=== PATIENT | female | born 1935 | race Caucasian/White ===

== ENCOUNTER → 2016-10-18 | Outpatient (CLI) | payer MEDICARE ==
[2016-10-18 13:53] LABS: APPEARANCE,URINE CLEAR; BILIRUBIN,URINE NEGATIVE (NEGATIVE); GLUCOSE, URINE NEGATIVE (NEGATIVE); KETONES,URINE TRACE mg/dL (NEGATIVE); LEUKOCYTE ESTERASE,URINE NEGATIVE (NEGATIVE); NITRITE,URINE NEGATIVE (NEGATIVE); PROTEIN,URINE 100 mg/dL (NEGATIVE); URINE SPECIFIC GRAVITY 1.018; UROBILINOGEN,URINE NEGATIVE mg/dL (<2.0)
[2016-10-18 14:08] LABS: ANION GAP 11 (5-19); BLOOD UREA NITROGEN 23 mg/dL (7-20); CALCIUM 10.2 mg/dL (8.4-10.2); CARBON DIOXIDE 27 mmol/L (22-30); CHLORIDE 100 mmol/L (98-107); GLUCOSE 117 mg/dL (75-110); POTASSIUM 5.2 mmol/L (3.6-5.0); SODIUM 138.2 mmol/L (137-145)
[2016-10-19 11:38] LABS: CREATININE URINE 122.7 mg/dL (Not Estab.)
== END ==
LOC: OD 12:43
PROVIDERS: ATTEND Internal Medicine Nephrology
DX: I10 Essential (primary) hypertension (principal); R80.9 Proteinuria, unspecified; E87.5 Hyperkalemia
CPT/HCPCS: 36415; 80048; 81001; 82570; 84156

== ENCOUNTER → 2017-04-25 | Outpatient (CLI) | payer MEDICARE ==
[2017-04-25 13:41] LABS: APPEARANCE,URINE CLEAR; BILIRUBIN,URINE NEGATIVE (NEGATIVE); GLUCOSE, URINE NEGATIVE (NEGATIVE); KETONES,URINE NEGATIVE (NEGATIVE); LEUKOCYTE ESTERASE,URINE NEGATIVE (NEGATIVE); NITRITE,URINE NEGATIVE (NEGATIVE); PROTEIN,URINE 30 mg/dL (NEGATIVE); URINE SPECIFIC GRAVITY 1.011; UROBILINOGEN,URINE NEGATIVE mg/dL (<2.0)
[2017-04-25 13:54] LABS: BLOOD UREA NITROGEN 28 mg/dL (7-20); CALCIUM 10.7 mg/dL (8.4-10.2); CREATININE RESULT 0.93 mg/dL (0.52-1.25); GLUCOSE 144 mg/dL (75-110)
[2017-04-25 13:55] LABS: ANION GAP 11 (5-19); CARBON DIOXIDE 29 mmol/L (22-30); CHLORIDE 101 mmol/L (98-107); SODIUM 140.5 mmol/L (137-145)
[2017-04-25 16:00] LABS: URINE CREATININE 47.7 mg/dL (15-278); URINE PROTEIN 49.8 mg/dL (<12)
== END ==
LOC: OD 12:14
PROVIDERS: ATTEND Internal Medicine Nephrology
DX: E87.5 Hyperkalemia (principal); R80.9 Proteinuria, unspecified; I10 Essential (primary) hypertension
CPT/HCPCS: 36415; 80048; 81001; 82570; 84156

== ENCOUNTER → 2017-11-07 | Outpatient (CLI) | payer MEDICARE ==
[2017-11-07 16:24] LABS: HEMATOCRIT 36.1 % (36.0-47.0); HEMOGLOBIN 12.4 g/dL (12.0-15.5); MEAN CORPUSCULAR HEMOGLOBIN 31.2 pg (27.0-33.4); MEAN CORPUSCULAR HGB CONC 34.3 g/dL (32.0-36.0); MEAN CORPUSCULAR VOLUME 91 fl (80-97); PLATELET COUNT 317 10^3/uL (150-450); RED BLOOD COUNT 3.96 10^6/uL (3.72-5.28); RED CELL DISTRIBUTION WIDTH 12.3 % (11.5-14.0); WHITE BLOOD COUNT 8.9 10^3/uL (4.0-10.5)
[2017-11-07 16:26] LABS: APPEARANCE,URINE CLEAR; BILIRUBIN,URINE NEGATIVE (NEGATIVE); COLOR,URINE YELLOW; GLUCOSE, URINE NEGATIVE (NEGATIVE); KETONES,URINE NEGATIVE (NEGATIVE); LEUKOCYTE ESTERASE,URINE NEGATIVE (NEGATIVE); NITRITE,URINE NEGATIVE (NEGATIVE); PROTEIN,URINE 100 mg/dL (NEGATIVE); URINE SPECIFIC GRAVITY 1.009; UROBILINOGEN,URINE NEGATIVE mg/dL (<2.0)
[2017-11-07 16:47] LABS: UR PRO/CREAT RATIO RESULT 2.5 mg/mg (0.0-0.2); URINE CREATININE 31.9 mg/dL (15-278); URINE PROTEIN 80.1 mg/dL (<12)
[2017-11-07 16:47] LABS: ANION GAP 13 (5-19); BLOOD UREA NITROGEN 26 mg/dL (7-20); CARBON DIOXIDE 26 mmol/L (22-30); CHLORIDE 100 mmol/L (98-107); GLUCOSE 121 mg/dL (75-110); POTASSIUM 4.9 mmol/L (3.6-5.0); SODIUM 138.8 mmol/L (137-145)
== END ==
LOC: OD 15:10
PROVIDERS: ATTEND Physician Assistant Medical
DX: E11.9 Type 2 diabetes mellitus without complications (principal); R80.9 Proteinuria, unspecified; E87.5 Hyperkalemia
CPT/HCPCS: 36415; 80048; 81001; 82570; 84156; 85027

== ENCOUNTER → 2017-12-08 | Outpatient (CLI) | payer MEDICARE ==
--- NOTE | 2017-12-08 10:36 | WOMENS IMAGING REPORT ---
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 LIMITATIONS: None. FINDINGS: LUMBAR SPINE: The bone mineral density (BMD) measured from L1-L4 in the AP projection correlates with a T-score of -0.3, which is normal as defined by the World Health Organization. -0.1% decrease as compared to the previous study HIP: The bone mineral density (BMD) measured in the left hip correlates with a T-score of -1.8, which is o steopenia as defined by the World Health Organization. 4.4% increase as compared to the previous rebecca dy IMPRESSION: 1. LUMBAR SPINE: Normal 2. HIP: Osteopenia COMMENT: The World Health Organization defines low BMD as follows: T-score: Normal: Greater than -1.0 Osteopenia: Between -1.0 and -2.5 Osteoporosis: Less than -2.5 without fractures Established osteoporosis: Less than -2.5 with fractures In general, you may wish to consider: Diagnosis Treatment Follow-up DEXA Normal BMD Prevention 2-3 years Osteopenia Prevention/Therapy 1-2 years Osteoporosis Therapy Yearly TECHNICAL DOCUMENTATION: JOB ID: [id number] [employer]- All Rights Reserved Reading location - IP/workstation name: [email or web address]
== END ==
LOC: WI 10:01
PROVIDERS: ATTEND Internal Medicine
DX: M81.0 Age-related osteoporosis without current pathological fracture (principal)
CPT/HCPCS: 77080

== ENCOUNTER 2018-03-03 20:07 | Emergency (ER) | payer MEDICARE ==
--- NOTE | 2018-03-03 20:40 | RADIOLOGY REPORT (SQ) ---
EXAM DESCRIPTION: CHEST SINGLE VIEW COMPLETED DATE/TIME: 03/03/2018 8:28 pm REASON FOR STUDY: abnormal labs COMPARISON: None. EXAM PARAMETERS: NUMBER OF VIEWS: One view. TECHNIQUE: Single frontal radiographic view of the chest acquired. RADIATION DOSE: NA LIMITATIONS: None. FINDINGS: LUNGS AND PLEURA: No opacities, masses or pneumothorax. No pleural effusion. MEDIASTINUM AND HILAR STRUCTURES: No masses. Contour normal. HEART AND VASCULAR STRUCTURES: Heart normal in size. Normal vasculature. BONES: No acute findings. HARDWARE: None in the chest. OTHER: No other significant finding. IMPRESSION: NO ACUTE RADIOGRAPHIC FINDING IN THE CHEST. TECHNICAL DOCUMENTATION: JOB ID: [id number] [employer]- All Rights Reserved Reading location - IP/workstation name: [email or web address]
[2018-03-03 21:10] LABS: ABSOLUTE BASOPHILS # (AUTO) 0.2 10^3/uL (0.0-0.2); ABSOLUTE EOSINOPHILS # (AUTO) 0.9 10^3/uL (0.0-0.6); ABSOLUTE LYMPHOCYTES (AUTO) 3.5 10^3/uL (0.5-4.7); ABSOLUTE MONOCYTES (AUTO) 0.6 10^3/uL (0.1-1.4); ABSOLUTE NEUT (AUTO) 3.6 10^3/uL (1.7-8.2); BASOPHILS % (AUTO) 2.4 % (0-2); EOSINOPHILS % (AUTO) 10.8 % (0-6); LYMPHOCYTES % (AUTO) 39.6 % (13-45); MEAN CORPUSCULAR HEMOGLOBIN 31.4 pg (27.0-33.4); MEAN CORPUSCULAR HGB CONC 34.3 g/dL (32.0-36.0); MEAN CORPUSCULAR VOLUME 92 fl (80-97); MONOCYTES % (AUTO) 6.8 % (3-13); PLATELET COUNT 415 10^3/uL (150-450); RED BLOOD COUNT 4.15 10^6/uL (3.72-5.28); RED CELL DISTRIBUTION WIDTH 12.7 % (11.5-14.0); SEGMENTED NEUTROPHILS % (AUTO) 40.4 % (42-78); TOTAL CELLS COUNTED % (AUTO) 100 %; WHITE BLOOD COUNT 8.8 10^3/uL (4.0-10.5)
[2018-03-03] MEDS ORDERED: NORMAL SALINE 1000 ML 1,000 ML IV ONE (21:17)
[2018-03-03] MEDS ORDERED: HYDRALAZINE HCL INJ/PF 20 MG/1 ML SDV IV ONE (21:17)
[2018-03-03] MEDS ORDERED: SODIUM POLYSTYRENE SULFONATE 15 GM/60 ML PO ONE (21:18)
--- NOTE | 2018-03-03 21:22 | ER Document Report ---
ED General <ISAAC BAKER - Last Filed: 03/03/18 22:54> - General Mode of Arrival: Ambulatory Information source: Patient TRAVEL OUTSIDE OF THE [place] IN LAST 30 DAYS: No <KATHERINE BARTON - Last Filed: 03/04/18 18:29> - General Chief Complaint: Abnormal Lab Results Stated Complaint: ABNORMAL LABS Time Seen by Provider: 03/03/18 21:07 Notes: Patient is an 82 year old female with HTN, glaucoma and renal problems presents to the emergency department complaining of an elevated potassium. Patient states that she is prescribed Kayexalate 1x a week but has forgotten to take her Kayexalate for 3-4 weeks. Patient states that she decided to come to the emergency department due to this. She also mentions walking every day but only walking for a short period of time today due to the heat. Patient denies eating any bananas, oranges or fruit. Patient mentions her blood pressure being elevated whenever she is being seen by a physician. (KATHERINE BARTON) - Related Data Allergies/Adverse Reactions: No Known Allergies Allergy (Unverified 03/03/18 21:54) Past Medical History - General Information source: Patient - Social History Smoking Status: Former Smoker - quit in 1997 Cigarette use (# per day): No Chew tobacco use (# tins/day): No Smoking Education Provided: No Frequency of alcohol use: None Family History: Reviewed & Not Pertinent - Past Medical History Cardiac Medical History: Reports: Hx Hypertension EENT Medical History: Reports: Eyes - Glaucoma <KATHERINE BARTON - Last Filed: 03/04/18 18:29> Review of Systems - Review of Systems Constitutional: See HPI EENT: No symptoms reported Cardiovascular: No symptoms reported Respiratory: No symptoms reported Gastrointestinal: No symptoms reported Genitourinary: No symptoms reported Female Genitourinary: No symptoms reported Musculoskeletal: No symptoms reported Skin: No symptoms reported Hematologic/Lymphatic: No symptoms reported Neurological/Psychological: No symptoms reported -: Yes All other systems reviewed and negative <KATHERINE BARTON - Last Filed: 03/04/18 18:29> Physical Exam - General General appearance: Appears well, Alert In distress: None - HEENT Head: Normocephalic, Atraumatic Eyes: Normal Conjunctiva: Normal Extraocular movements intact: Yes Pupils: PERRL Neck: Normal - Respiratory Respiratory status: No respiratory distress Chest status: Nontender Breath sounds: Normal Chest palpation: Normal - Cardiovascular Rhythm: Regular Heart sounds: Normal auscultation Murmur: No Friction rub: No Gallop: None auscultated - Abdominal Inspection: Normal Distension: No distension Bowel sounds: Normal Tenderness: Nontender Organomegaly: No organomegaly - Back Back: Normal - Extremities General upper extremity: Normal ROM General lower extremity: Normal ROM - Neurological Neuro grossly intact: Yes Cognition: Normal Orientation: AAOx4 Zi Coma Scale Eye Opening: Spontaneous [place] Coma Scale Verbal: Oriented Zi Coma Scale Motor: Obeys Commands Zi Coma Scale Total: 15 Speech: Normal - Psychological Associated symptoms: Normal affect, Normal mood - Skin Skin Temperature: Warm Skin Moisture: Dry Skin Color: Normal <KATHERINE BARTON - Last Filed: 03/04/18 18:29> - Vital signs Vitals: Temp Pulse BP Pulse Ox 97.9 F 112 H 217/86 H 98 03/03/18 20:37 03/03/18 20:37 03/03/18 20:37 03/03/18 20:37 Course - Laboratory Result Diagrams: 03/03/18 20:58 03/03/18 20:58 <ISAAC BAKER - Last Filed: 03/03/18 22:54> - Laboratory Result Diagrams: 03/03/18 20:58 03/03/18 20:58 <KATHERINE BARTON - Last Filed: 03/04/18 18:29> - Re-evaluation Re-evalutation: 03/03/18 21:53 Patient's potassium about 1600 today was 6.3, when blood was drawn at 2100 this evening in the emergency room it is 5.4. It is unclear if she actually took her Kayexalate after she was told of the elevated potassium level. She does admit that she has missed her weekly dose of Kayexalate for 3-4 weeks now. She states she has not missed her blood pressure doses, but her blood pressure goes high when she goes to the doctor. Her systolic pressures running over 200. She was given 10 mg of hydralazine to see where that takes her blood pressure. She was also given a dose of Kayexalate after the blood was drawn, but before the lab was resulted. 03/03/18 22:55 The patient is anxious to go this time. Blood pressure has come down to 154/65. She has an appointment with her application packaging consultant on 03/05/2018. (ISAAC BAKER) - Vital Signs Vital signs: Temp Pulse Resp BP Pulse Ox 97.9 F 112 H 21 H 163/70 H 100 03/03/18 20:37 03/03/18 20:37 03/03/18 23:02 03/03/18 23:02 03/03/18 23:02 - Laboratory Laboratory results interpreted by me: 03/03/18 03/03/18 20:58 20:58 Seg Neutrophils % 40.4 L Eosinophils % 10.8 H Basophils % 2.4 H Absolute Eosinophils 0.9 H Potassium 5.4 H BUN 27 H Est GFR (Non-Af Amer) 57 L Glucose 164 H Calcium 11.4 H Total Protein 9.0 H Albumin 5.1 H Discharge <ISAAC BAKER - Last Filed: 03/03/18 22:54> <KATHERINE BARTON - Last Filed: 03/04/18 18:29> - Discharge Clinical Impression: Hyperkalemia, Chronic hyperkalemia High blood pressure Qualifiers: Hypertension type: essential hypertension Qualified Code(s): I10 - Essential ( primary) hypertension Condition: Stable Disposition: HOME, SELF-CARE Additional Instructions: Be sure to take all your medications as prescribed. Check your blood pressure a few times every day. Follow-up with Dr. Garrett on as scheduled. RETURN TO THE EMERGENCY ROOM IF ANY NEW OR WORSENING SYMPTOMS. Referrals: Errol GARRETT MD [ACTIVE STAFF] - Follow up as needed Scribe Attestation: 03/03/18 21:55 I personally performed the services described in the documentation, reviewed and edited the documentation which was dictated to the scribe in my presence, and it accurately records my words and actions. (ISAAC BAKER) Scribe Documentation - Scribe Written by Scribe:: Megan Loza, 03/03/2018 21:24 acting as scribe for :: Kathryn <KATHERINE BARTON - Last Filed: 03/04/18 18:29>
[2018-03-03 21:44] LABS: ALANINE AMINOTRANSFERASE 24 U/L (9-52); ALBUMIN 5.1 g/dL (3.5-5.0); ALKALINE PHOSPHATASE 49 U/L (38-126); ANION GAP 16 (5-19); ASPARTATE AMINO TRANSFERASE 28 U/L (14-36); BILIRUBIN,DIRECT 0.4 mg/dL (0.0-0.4); BILIRUBIN,TOTAL 0.4 mg/dL (0.2-1.3); BLOOD UREA NITROGEN 27 mg/dL (7-20); CALCIUM 11.4 mg/dL (8.4-10.2); CARBON DIOXIDE 26 mmol/L (22-30); CHLORIDE 100 mmol/L (98-107); CREATINE KINASE 39 U/L (30-135); GLUCOSE 164 mg/dL (75-110); POTASSIUM 5.4 mmol/L (3.6-5.0); SODIUM 141.6 mmol/L (137-145)
[2018-03-03 21:53] LABS: CREATINE KINASE MB 0.68 ng/mL (<4.55); TROPONIN I < 0.012 ng/mL
--- NOTE | 2018-03-03 22:50 | EKG REPORT ---
SEVERITY:- BORDERLINE ECG - SINUS RHYTHM PROBABLE LEFT ATRIAL ABNORMALITY : Confirmed by: Milli Sloan 03-Mar-2018 22:49:54
[2018-03-03 23:18] VITALS: BP 163/70
== END 2018-03-03 23:18 | disposition home or self-care (01) ==
LOC: ER 20:07
DX: E87.5 Hyperkalemia (principal); I10 Essential (primary) hypertension; Z87.891 Personal history of nicotine dependence
CPT/HCPCS: 93005; 99284; 96361; 96374; 36415; 82553; 82550; 85025; 80053; 84484; 71045; 93010; J0360; J7030

== ENCOUNTER → 2018-03-03 | Outpatient (CLI) | payer MEDICARE ==
[2018-03-03 16:52] LABS: HEMATOCRIT 36.1 % (36.0-47.0); HEMOGLOBIN 12.3 g/dL (12.0-15.5); MEAN CORPUSCULAR HGB CONC 34.2 g/dL (32.0-36.0); MEAN CORPUSCULAR VOLUME 91 fl (80-97); PLATELET COUNT 344 10^3/uL (150-450); RED BLOOD COUNT 3.99 10^6/uL (3.72-5.28); RED CELL DISTRIBUTION WIDTH 12.8 % (11.5-14.0); WHITE BLOOD COUNT 8.5 10^3/uL (4.0-10.5)
[2018-03-03 16:57] LABS: APPEARANCE,URINE CLEAR; BILIRUBIN,URINE NEGATIVE (NEGATIVE); COLOR,URINE STRAW; GLUCOSE, URINE NEGATIVE (NEGATIVE); KETONES,URINE NEGATIVE (NEGATIVE); LEUKOCYTE ESTERASE,URINE NEGATIVE (NEGATIVE); NITRITE,URINE NEGATIVE (NEGATIVE); PROTEIN,URINE 30 mg/dL (NEGATIVE); URINE SPECIFIC GRAVITY 1.006; UROBILINOGEN,URINE NEGATIVE mg/dL (<2.0)
[2018-03-03 17:34] LABS: ANION GAP 10 (5-19); BLOOD UREA NITROGEN 28 mg/dL (7-20); CALCIUM 11.2 mg/dL (8.4-10.2); CARBON DIOXIDE 29 mmol/L (22-30); CHLORIDE 100 mmol/L (98-107); GLUCOSE 126 mg/dL (75-110); SODIUM 138.7 mmol/L (137-145); UR PRO/CREAT RATIO RESULT 2.3 mg/mg (0.0-0.2); URINE CREATININE 19.6 mg/dL (15-278); URINE PROTEIN 45.2 mg/dL (<12)
[2018-03-03 17:49] LABS: POTASSIUM 6.3 mmol/L (3.6-5.0)
== END ==
LOC: OD 15:35
PROVIDERS: ATTEND Physician Assistant Medical
DX: E11.22 Type 2 diabetes mellitus with diabetic chronic kidney disease (principal); I12.9 Hypertensive chronic kidney disease with stage 1 through stage 4 chronic kidney disease, or unspecified chronic kidney disease; N18.9 Chronic kidney disease, unspecified; R80.9 Proteinuria, unspecified
CPT/HCPCS: 36415; 80048; 81001; 82570; 84156; 85027

== ENCOUNTER 2018-08-26 17:24 | Emergency (ER) | payer MEDICARE ==
--- NOTE | 2018-08-26 19:52 | ER Document Report ---
ED Medical Screen (RME) - General Chief Complaint: Abnormal Lab Results Stated Complaint: IRREGULAR LABS Time Seen by Provider: 08/26/18 19:45 Notes: Patient is a 83-year-old female that presents to the emergency department for chief complaint of high potassium and outpatient blood work. Patient states that her potassium was 6 today, advised by her PCP to come to the ED for this, she reports a history of this, I discussed with the patient and reviewed her medications, she has been taking losartan 50 mg, and it was not discontinued the last time she had high potassium, discussed with her that this is likely the culprit, and advised discontinuing this. She otherwise denies any complaints. ROS: Other than noted above, the 12 point review of systems was reviewed with the patient and were negative, all pertinent findings are included in the HPI. PHYSICAL EXAMINATION: Vital signs reviewed. GENERAL: Well-appearing, well-nourished and in no acute distress. HEAD: Atraumatic, normocephalic. EYES: Pupils equal round extraocular movements intact, conjunctiva are normal. ENT: Nares patent NECK: Normal range of motion CV: Heart regular rate and rhythm LUNGS: No respiratory distress Musculoskeletal: Normal range of motion NEUROLOGICAL: Normal speech PSYCH: Normal mood, normal affect. MDM: Patient seen and examined for rapid initial assessment. Vital signs reviewed. A comprehensive ED assessment and evaluation of the patient, analysis of test results and completion of the medical decision making process will be conducted by additional ED providers. *Note is created using voice recognition software and may contain spelling, syntax or grammatical errors. TRAVEL OUTSIDE OF THE [place] IN LAST 30 DAYS: No - Related Data Allergies/Adverse Reactions: No Known Allergies Allergy (Unverified 03/03/18 21:54) Past Medical History - Past Medical History Cardiac Medical History: Reports: Hx Hypertension Renal/ Medical History: Denies: Hx Peritoneal Dialysis Physical Exam - Vital signs Vitals: Temp Pulse Resp BP Pulse Ox 98.1 F 98 16 201/76 H 98 08/26/18 17:46 08/26/18 17:46 08/26/18 17:46 08/26/18 17:46 08/26/18 17:46 Course - Vital Signs Vital signs: Temp Pulse Resp BP Pulse Ox 98.1 F 98 16 201/76 H 98 08/26/18 17:46 08/26/18 17:46 08/26/18 17:46 08/26/18 17:46 08/26/18 17:46 Doctor's Discharge - Discharge Referrals: POONAM SAHA PA-C [Primary Care Provider] - Follow up as needed
--- NOTE | 2018-08-26 20:42 | ER Document Report ---
ED General - General Chief Complaint: Abnormal Lab Results Stated Complaint: IRREGULAR LABS Time Seen by Provider: 08/26/18 19:45 Notes: Patient sent here for evaluation for hyperkalemia. Patient has been having intermittent episodes of elevated potassium. Had labs drawn today. Potassium was elevated. Sent here for further evaluation. Patient is asymptomatic at this time. Patient does not know which medication she is taking but states that she is not going to take it anymore. Has any chest pain, shortness of breath, syncope, difficulty with urination, decrease urination or other issues. TRAVEL OUTSIDE OF THE [place] IN LAST 30 DAYS: No - HPI Onset: Just prior to arrival Quality of pain: No pain Severity: None Pain Level: Denies - Related Data Allergies/Adverse Reactions: No Known Allergies Allergy (Unverified 03/03/18 21:54) Past Medical History - General Information source: Patient - Social History Smoking Status: Never Smoker Frequency of alcohol use: None Drug Abuse: None Lives with: Spouse/Significant other Family History: Reviewed & Not Pertinent Patient has suicidal ideation: No Patient has homicidal ideation: No - Past Medical History Cardiac Medical History: Reports: Hx Hypertension Renal/ Medical History: Denies: Hx Peritoneal Dialysis Review of Systems - Review of Systems Notes: Constitutional: denies: Chills, Diaphoresis, Fever, Malaise, Weakness EENT: denies: Eye discharge, Blurred vision, Tearing, Double vision, Nose congestion, Nose discharge, Throat swelling, Mouth pain Cardiovascular: denies: Palpitations, Heart racing, Orthopnea, Dyspnea, Chest pain Respiratory: denies: Cough, Hurts to breathe, Wheezing, Shortness of breath Gastrointestinal: denies: Abdominal pain, Diarrhea, Nausea, Vomiting, Black stools, bright red blood in stool Genitourinary: denies: Burning, Dysuria, Discharge, Frequency, Flank pain, Hematuria Musculoskeletal: denies: Joint pain, Joint swelling, Muscle pain, Muscle stiffness, back pain Hematologic/Lymphatic: denies: Anemia, Easy bleeding, Easy bruising, Blood clots Neurological/Psychological: denies: Confusion, Dementia, Depression, Loss of consciousness Skin: No lesions, no masses, no skin breakdown, no abscesses Physical Exam - Vital signs Vitals: Temp Pulse Resp BP Pulse Ox 98.1 F 98 16 201/76 H 98 08/26/18 17:46 08/26/18 17:46 12/12/18 17:46 08/26/18 17:46 08/26/18 17:46 Interpretation: Normal - General General appearance: Appears well, Alert - HEENT Head: Normocephalic, Atraumatic Eyes: Normal Pupils: PERRL - Respiratory Respiratory status: No respiratory distress Chest status: Nontender Breath sounds: Normal Chest palpation: Normal - Cardiovascular Rhythm: Regular Heart sounds: Normal auscultation Murmur: No - Abdominal Inspection: Normal Distension: No distension Bowel sounds: Normal Tenderness: Nontender Organomegaly: No organomegaly - Back Back: Normal, Nontender - Extremities General upper extremity: Normal inspection, Nontender, Normal color, Normal ROM , Normal temperature General lower extremity: Normal inspection, Nontender, Normal color, Normal ROM , Normal temperature, Normal weight bearing. No: Gloria's sign - Neurological Neuro grossly intact: Yes Cognition: Normal Orientation: AAOx4 Zi Coma Scale Eye Opening: Spontaneous Zi Coma Scale Verbal: Oriented [place] Coma Scale Motor: Obeys Commands [place] Coma Scale Total: 15 Speech: Normal Motor strength normal: LUE, RUE, LLE, RLE Sensory: Normal - Psychological Associated symptoms: Normal affect, Normal mood - Skin Skin Temperature: Warm Skin Moisture: Dry Skin Color: Normal Course - Re-evaluation Re-evalutation: 08/27/18 00:51 EKG does not show any elevated peak T waves. Shows a sinus tachycardia. No acute distress. Potassium is 5.2. A dose of Lasix was given. Patient is asymptomatic. More likely patient is on an AMY inhibitor or angiotensin receptor [place]. I am prescribing her some Lasix. Patient will follow up with her regular doctor tomorrow. Do not feel patient needs to be admitted. Patient is comfortable with this plan. I have advised her not to take whatever the medication she was taking. She agrees she will not do that anymore. - Vital Signs Vital signs: Temp Pulse Resp BP Pulse Ox 98.1 F 98 15 167/76 H 99 08/26/18 17:46 08/26/18 17:46 08/26/18 23:01 08/26/18 23:01 08/26/18 23:01 - Laboratory Result Diagrams: 08/26/18 21:05 08/26/18 21:05 Laboratory results interpreted by me: 08/26/18 21:05 Potassium 5.2 H BUN 28 H Glucose 162 H Calcium 11.2 H Discharge - Discharge Clinical Impression: Hyperkalemia Condition: Good Disposition: HOME, SELF-CARE Additional Instructions: It appears that you have some medication that is causing her potassium to transiently elevate. Please stop the blood pressure medications. In the event he began to have chest pain or other symptoms please return immediately for repeat blood draw. You have been given some medication called Lasix. I expect that you will have an increased amount of urination over the next 24 hours. This will help to lower the potassium. Please follow-up with your doctor tomorrow. Return for any worsening symptoms or concerns. Prescriptions: Furosemide [Lasix 20 mg Tablet] 20 mg PO QAM #30 tablet Referrals: POONAM SAHA PA-C [Primary Care Provider] - Follow up as needed
[2018-08-26] MEDS ORDERED: NORMAL SALINE 1000 ML 1,000 ML IV ONE (20:57)
--- NOTE | 2018-08-26 21:05 | EKG REPORT ---
SEVERITY:- NORMAL ECG - SINUS TACHYCARDIA : Confirmed by: Karla De Los Santos MD 26-Aug-2018 21:04:44
[2018-08-26 21:14] LABS: ABSOLUTE BASOPHILS # (AUTO) 0.1 10^3/uL (0.0-0.2); ABSOLUTE EOSINOPHILS # (AUTO) 0.4 10^3/uL (0.0-0.6); ABSOLUTE LYMPHOCYTES (AUTO) 2.7 10^3/uL (0.5-4.7); ABSOLUTE MONOCYTES (AUTO) 0.5 10^3/uL (0.1-1.4); ABSOLUTE NEUT (AUTO) 4.8 10^3/uL (1.7-8.2); BASOPHILS % (AUTO) 1.3 % (0-2); EOSINOPHILS % (AUTO) 4.6 % (0-6); HEMATOCRIT 36.9 % (36.0-47.0); HEMOGLOBIN 12.9 g/dL (12.0-15.5); LYMPHOCYTES % (AUTO) 31.9 % (13-45); MEAN CORPUSCULAR HEMOGLOBIN 31.5 pg (27.0-33.4); MEAN CORPUSCULAR HGB CONC 34.9 g/dL (32.0-36.0); MEAN CORPUSCULAR VOLUME 90 fl (80-97); MONOCYTES % (AUTO) 5.9 % (3-13); PLATELET COUNT 414 10^3/uL (150-450); RED BLOOD COUNT 4.08 10^6/uL (3.72-5.28); SEGMENTED NEUTROPHILS % (AUTO) 56.3 % (42-78); TOTAL CELLS COUNTED % (AUTO) 100 %; WHITE BLOOD COUNT 8.5 10^3/uL (4.0-10.5)
[2018-08-26] MEDS ORDERED: ONDANSETRON HCL INJ/PF 4 MG/2 ML SDV IV ONE (21:27)
[2018-08-26 21:40] LABS: ANION GAP 14 (5-19); BLOOD UREA NITROGEN 28 mg/dL (7-20); CALCIUM 11.2 mg/dL (8.4-10.2); CARBON DIOXIDE 26 mmol/L (22-30); CHLORIDE 99 mmol/L (98-107); GLUCOSE 162 mg/dL (75-110); POTASSIUM 5.2 mmol/L (3.6-5.0); SODIUM 138.7 mmol/L (137-145)
[2018-08-26] MEDS ORDERED: FUROSEMIDE INJ/PF 20 MG/2 ML SDV IV ONE (22:35)
[2018-08-26 23:03] VITALS: BP 167/76
== END 2018-08-26 23:20 | disposition home or self-care (01) ==
LOC: ER 17:24
DX: E87.5 Hyperkalemia (principal); I10 Essential (primary) hypertension; R00.0 Tachycardia, unspecified
CPT/HCPCS: 93005; 99284; 96361; 96374; 36415; 85025; 80048; 93010; J1940; J7030

== ENCOUNTER → 2018-08-26 | Outpatient (CLI) | payer MEDICARE ==
[2018-08-26 14:28] LABS: HEMATOCRIT 34.9 % (36.0-47.0); MEAN CORPUSCULAR HEMOGLOBIN 31.3 pg (27.0-33.4); MEAN CORPUSCULAR HGB CONC 34.4 g/dL (32.0-36.0); MEAN CORPUSCULAR VOLUME 91 fl (80-97); PLATELET COUNT 391 10^3/uL (150-450); RED BLOOD COUNT 3.84 10^6/uL (3.72-5.28); RED CELL DISTRIBUTION WIDTH 11.6 % (11.5-14.0); WHITE BLOOD COUNT 6.9 10^3/uL (4.0-10.5)
[2018-08-26 14:38] LABS: APPEARANCE,URINE CLEAR; BILIRUBIN,URINE NEGATIVE (NEGATIVE); COLOR,URINE YELLOW; GLUCOSE, URINE NEGATIVE (NEGATIVE); KETONES,URINE NEGATIVE (NEGATIVE); LEUKOCYTE ESTERASE,URINE NEGATIVE (NEGATIVE); NITRITE,URINE NEGATIVE (NEGATIVE); PROTEIN,URINE 100 mg/dL (NEGATIVE); URINE SPECIFIC GRAVITY 1.011; UROBILINOGEN,URINE NEGATIVE mg/dL (<2.0)
[2018-08-26 14:57] LABS: ANION GAP 12 (5-19); BLOOD UREA NITROGEN 27 mg/dL (7-20); CALCIUM 11.1 mg/dL (8.4-10.2); CARBON DIOXIDE 27 mmol/L (22-30); CHLORIDE 99 mmol/L (98-107); GLUCOSE 188 mg/dL (75-110); SODIUM 138.4 mmol/L (137-145)
[2018-08-26 15:00] LABS: UR PRO/CREAT RATIO RESULT 2.5 mg/mg (0.0-0.2); URINE CREATININE 32.8 mg/dL (15-278); URINE PROTEIN 83.5 mg/dL (<12)
[2018-08-26 15:06] LABS: POTASSIUM 6.1 mmol/L (3.6-5.0)
== END ==
LOC: OD 13:47
PROVIDERS: ATTEND Physician Assistant Medical
DX: R80.9 Proteinuria, unspecified (principal); E87.6 Hypokalemia; E11.9 Type 2 diabetes mellitus without complications
CPT/HCPCS: 36415; 80048; 81001; 82570; 84156; 85027

== ENCOUNTER → 2019-04-08 | Outpatient (CLI) | payer MEDICARE ==
[2019-04-08 11:31] LABS: ABSOLUTE BASOPHILS # (AUTO) 0.1 10^3/uL (0.0-0.2); ABSOLUTE EOSINOPHILS # (AUTO) 0.4 10^3/uL (0.0-0.6); ABSOLUTE LYMPHOCYTES (AUTO) 2.8 10^3/uL (0.5-4.7); ABSOLUTE MONOCYTES (AUTO) 0.5 10^3/uL (0.1-1.4); BASOPHILS % (AUTO) 1.2 % (0-2); EOSINOPHILS % (AUTO) 5.7 % (0-6); HEMATOCRIT 39.5 % (36.0-47.0); HEMOGLOBIN 13.7 g/dL (12.0-15.5); LYMPHOCYTES % (AUTO) 41.9 % (13-45); MEAN CORPUSCULAR HEMOGLOBIN 30.6 pg (27.0-33.4); MEAN CORPUSCULAR HGB CONC 34.7 g/dL (32.0-36.0); MEAN CORPUSCULAR VOLUME 88 fl (80-97); MONOCYTES % (AUTO) 6.8 % (3-13); PLATELET COUNT 309 10^3/uL (150-450); RED BLOOD COUNT 4.47 10^6/uL (3.72-5.28); RED CELL DISTRIBUTION WIDTH 12.7 % (11.5-14.0); SEGMENTED NEUTROPHILS % (AUTO) 44.4 % (42-78); TOTAL CELLS COUNTED % (AUTO) 100 %; WHITE BLOOD COUNT 6.7 10^3/uL (4.0-10.5)
[2019-04-08 11:56] LABS: ALANINE AMINOTRANSFERASE 18 U/L (9-52); ALBUMIN 4.5 g/dL (3.5-5.0); ALKALINE PHOSPHATASE 81 U/L (38-126); ANION GAP 9 (5-19); ASPARTATE AMINO TRANSFERASE 31 U/L (14-36); BILIRUBIN,DIRECT 0.3 mg/dL (0.0-0.4); BILIRUBIN,TOTAL 0.5 mg/dL (0.2-1.3); BLOOD UREA NITROGEN 21 mg/dL (7-20); CALCIUM 10.9 mg/dL (8.4-10.2); CARBON DIOXIDE 28 mmol/L (22-30); CHLORIDE 102 mmol/L (98-107); CHOLESTEROL 240.18 mg/dL (0-200); GLUCOSE 98 mg/dL (75-110); TOTAL PROTEIN 7.9 g/dL (6.3-8.2); TRIGLYCERIDES 123 mg/dL (<150)
[2019-04-08 12:06] LABS: DIRECT LDL 114 mg/dL (<100)
[2019-04-08 12:09] LABS: POTASSIUM 4.8 mmol/L (3.6-5.0)
== END ==
LOC: OD 09:57
PROVIDERS: ATTEND Internal Medicine
DX: E11.9 Type 2 diabetes mellitus without complications (principal); I10 Essential (primary) hypertension; E78.5 Hyperlipidemia, unspecified; E03.9 Hypothyroidism, unspecified
CPT/HCPCS: 36415; 80053; 80061; 83036; 84443; 85025

== ENCOUNTER → 2020-02-22 | Outpatient (CLI) | payer MEDICARE ==
[2020-02-22 11:03] LABS: ABSOLUTE EOSINOPHILS # (AUTO) 0.4 10^3/uL (0.0-0.6); ABSOLUTE LYMPHOCYTES (AUTO) 2.1 10^3/uL (0.5-4.7); ABSOLUTE MONOCYTES (AUTO) 0.4 10^3/uL (0.1-1.4); ABSOLUTE NEUT (AUTO) 3.8 10^3/uL (1.7-8.2); BASOPHILS % (AUTO) 0.5 % (0-2); EOSINOPHILS % (AUTO) 6.5 % (0-6); HEMATOCRIT 38.5 % (36.0-47.0); HEMOGLOBIN 13.4 g/dL (12.0-15.5); LYMPHOCYTES % (AUTO) 30.7 % (13-45); MEAN CORPUSCULAR HEMOGLOBIN 31.1 pg (27.0-33.4); MEAN CORPUSCULAR HGB CONC 34.7 g/dL (32.0-36.0); MEAN CORPUSCULAR VOLUME 90 fl (80-97); PLATELET COUNT 306 10^3/uL (150-450); RED CELL DISTRIBUTION WIDTH 12.6 % (11.5-14.0); SEGMENTED NEUTROPHILS % (AUTO) 56.3 % (42-78); TOTAL CELLS COUNTED % (AUTO) 100 %; WHITE BLOOD COUNT 6.7 10^3/uL (4.0-10.5)
[2020-02-22 11:26] LABS: ALBUMIN 4.5 g/dL (3.5-5.0); ALKALINE PHOSPHATASE 47 U/L (38-126); ANION GAP 8 (5-19); ASPARTATE AMINO TRANSFERASE 27 U/L (14-36); BILIRUBIN,DIRECT 0.2 mg/dL (0.0-0.4); BILIRUBIN,TOTAL 0.5 mg/dL (0.2-1.3); BLOOD UREA NITROGEN 26 mg/dL (7-20); CALCIUM 10.8 mg/dL (8.4-10.2); CARBON DIOXIDE 28 mmol/L (22-30); CHLORIDE 101 mmol/L (98-107); GLUCOSE 124 mg/dL (75-110); POTASSIUM 4.7 mmol/L (3.6-5.0); TOTAL PROTEIN 7.9 g/dL (6.3-8.2)
== END ==
LOC: OD 10:20
PROVIDERS: ATTEND Internal Medicine
DX: I10 Essential (primary) hypertension (principal); E11.9 Type 2 diabetes mellitus without complications; E78.5 Hyperlipidemia, unspecified; E03.9 Hypothyroidism, unspecified
CPT/HCPCS: 36415; 80053; 83036; 84443; 85025